=== PATIENT | female | born 1930 | race Caucasian/White ===

== ENCOUNTER 2017-01-24 09:40 | Inpatient (IN) | payer MEDICARE ==
--- NOTE | 2017-01-18 11:28 | HP ---
DATE OF ADMISSION: 01/24/2017. DATE OF OFFICE VISIT: 01/18/2017. SURGEON: Brittani Messer MD. PROCEDURE: Right total knee arthroplasty. HISTORY OF PRESENT ILLNESS: Ms. Miranda is an 86-year-old female with complaints of right knee pain. She has an existing right total knee and x-rays confirm loosening of the hardware. She has failed conservative management and has elected to proceed with a right total knee arthroplasty revision. PAST MEDICAL HISTORY: Hiatal hernia, GERD, high cholesterol, COPD. PAST SURGICAL HISTORY: Hysterectomy, bilateral TKA's, bilateral carpal tunnel release, cataract removal, appendectomy, and tonsillectomy. CURRENT MEDICATIONS: Percocet, Celebrex, Levocetirizine, Dihydrochloride, Omeprazole, Fenofibrate, Fluticasone, Gabapentin, Tylenol, and vitamin B12. ALLERGIES: PENICILLIN, BARBITURATES, CODEINE, IODINE, DOXYCYCLINE, DESLORATADINE. FAMILY HISTORY: Lung, colon and breast cancer, tuberculosis. SOCIAL HISTORY: She is an 86-year-old female, she lives with her . She does not smoke, use drugs or alcohol. REVIEW OF SYSTEMS: A complete 14 point review of systems is reviewed with the patient and positive for kidney stones. She denies a history of DVT, PE, bleeding disorder, or anesthesia problems. PHYSICAL EXAMINATION GENERAL: She is an 86-year-old, obese female in no acute distress. VITAL SIGNS: She stands 5 feet 7 inches tall, weighs 250 pounds. Her blood pressure is 110/58, her heart rate is 81. HEENT: She is normocephalic, atraumatic. NECK: Supple with no palpable lymph nodes. Trachea is midline. CARDIO: Regular rate and rhythm. Strong S1, S2. No murmurs, gallops or rubs. PULMONARY: The lungs are clear to auscultation bilaterally. No wheezes, rhonchi, or rales. ABDOMEN: Soft, nontender, nondistended. MUSCULOSKELETAL: Right lower extremity: The skin is intact. There is a mild effusion. She has intact sensation distally and light touch over both legs. She walks with a slightly antalgic type gait favoring her right leg. She has 2 + dorsalis pedis pulses. NEUROLOGIC: She is alert and oriented times there. Cranial nerves II through XII are intact. ASSESSMENT AND PLAN: Ms. Miranda is an 86-year-old female with periprosthetic loosening and periprosthetic tibial plateau fracture of the right knee. She has developed a severe valgus deformity and has severe pain of the right knee. She has elected to proceed with revision of her right total knee. The surgery is scheduled for 01/24/[address] Messer discussed the risks and benefits of the surgery today and all of her questions were answered. Coumadin , Percocet and Colace were sent to her pharmacy today for postoperative DVT prophylaxis and pain control. She will follow-up with Dr. Messer 10 to 14 days after the surgery. ABDULLAHI RAMIREZ [id number]/[facility] #: [id number] MTDD
[~2017-01-24 09:40] MED LIST: Buffered Lidocaine 1% SYR 3ML* 3 ML/SYR SYRINGE INTRADERM ONE; Dexamethasone IV* 4 MG/ML 1 ML (4 MG) IV SLOW PU ONE; DiMENhydriNATE IV* 50 MG/ML VIAL IV PUSH PRN; Famotidine IV* 10 MG/ML 2 ML (20 mg) IV ONE; HYDROmorphone INJ* 1 MG/ML CARPUJECT SYRINGE IV PRN; Ondansetron INJ* 2 MG/ML VIAL IV PRN; PROCHLORPERAZINE INJ 5 MG/ML 2 ML VIAL IV PRN; fentaNYL* 50 MCG/ML 2 ML VIAL (100 MCG VIAL) IV PRN
[2017-01-24] MEDS ORDERED: Midazolam* 1 MG/ML 2 ML VIAL (2 MG) ONE (10:20)
[2017-01-24] MEDS ORDERED: HYDROmorphone INJ* 1 MG/ML CARPUJECT SYRINGE ONE ×2 (10:20→14:15)
[2017-01-24] MEDS ORDERED: fentaNYL* 50 MCG/ML 2 ML VIAL (100 MCG VIAL) ONE ×3 (10:20→17:26)
[2017-01-24] MEDS ORDERED: Morphine PF AMP (0.5MG/ML)* 5 MG/10 ML AMP ONE (10:22)
[2017-01-24] MEDS ORDERED: Propofol* 10 MG/ML 20 ML BTL IV PUSH ONE ×2 (10:47→14:27)
[2017-01-24] MEDS ORDERED: Dexmedetomidine* 200 MCG/2 ML 2 ML VIAL ONE (10:47)
[2017-01-24] MEDS ORDERED: Famotidine IV* 10 MG/ML 2 ML (20 mg) ONE (11:31)
[2017-01-24] MEDS ORDERED: Dexamethasone IV* 4 MG/ML 1 ML (4 MG) ONE (11:31)
[2017-01-24] MEDS ORDERED: Clindamycin 900 MG IVPREMIX(* 900 MG/50 ML SDV IV ONE (11:31)
[2017-01-24] MEDS ORDERED: Acetaminophen TAB* 325 MG PO PRN (14:16)
[2017-01-24] MEDS ORDERED: Polyethylene Glycol 3350* 17 GM PACKET PO PRN (14:16)
[2017-01-24] MEDS ORDERED: Fluticasone NASAL SPRAY 50MCG* 16 gm SPRAY BTL BOTH NARES PRN (14:31)
[2017-01-24] MEDS ORDERED: diPHENhydraMINE IV* 50 MG/ML 1 ml VIAL (BENADRYL) IV PRN (16:43)
[2017-01-24] MEDS ORDERED: PROCHLORPERAZINE INJ 5 MG/ML 2 ML VIAL IV PRN (16:43)
[2017-01-24] MEDS ORDERED: Nalbuphine* 20 MG/ML 1 ML VIAL IV PRN (16:43)
[2017-01-24] MEDS ORDERED: Naloxone* 0.4 MG/ML 1 ML VIAL IV PRN (16:43)
[2017-01-24] MEDS ORDERED: oxyCODONE/Acetamin 5/325 MG* TAB PO PRN (16:43)
[2017-01-24] MEDS ORDERED: Ondansetron INJ* 2 MG/ML VIAL IV PRN (16:43)
[2017-01-24] MEDS ORDERED: DiMENhydriNATE IV* 50 MG/ML VIAL IV PUSH PRN (16:43)
--- NOTE | 2017-01-24 17:22 | RAD ---
CPT II Codes: 6045F INDICATION: Right knee replacement with revision. 29 seconds of fluoroscopy time was used. 7 spot images demonstrates revision of bipolar knee arthroplasty. IMPRESSION: Fluoroscopic services provided for referring physician for bipolar knee arthroplasty.
--- NOTE | 2017-01-24 19:04 | CONSULT ---
Consult Consult: HOSPITALIST CONSULT: Requesting Provider: Dr Messer Reason for Consultation: medical co-management. HPI: Ms. Miranda is an 86 yo F who has a h/o COPD, GERD, recurrent UTIs in the setting of numerous kidney stones and bilateral knee replacements for osteoarthritis who is admitted after an elective right revision total knee arthroplasty. The patient had been doing well until about 1 year ago when she fell. Since that time she had pain in her R knee. Conservative measures were attempted however failed. She under went the revision total knee arthroplast today, 01/24/17. She has been feeling well prior to surgery and has no complaints at this time. The hospitalist service was asked to consult for medical co-management. PMHx: COPD, GERD, hiatal hernia PSHx: B/L cataract extraction, B/L carpal tunnel release, WILLIE-BSO, B/L knee arthroplasties and R revision total knee arthroplasty, appendectomy, L ureteral stent placement and shock wave lithotripsy and tonsillectomy. All: codeine, PCN, aspirin, barbiturates, desloratadine, doxycycline, hyclate, iodinated contrast agents Meds: Current in hospital and home medication lists reviewed FamHx: + fam history of lung, colon and breast cancer. SocHx: The patient is a former smoker-quit 50 years ago. No EtOH. She lives with her . ROS: No recent fever, chill, anorexia. No CP or SOB. No abd pain, N/V/D. Her only complaint has been frequent urination with slight dysuria though she states she saw her urologist this past Saturday and was felt to be ready for surgery. She has had pain in the R knee. No neurologic complaints. PE: 105/51 63 16 97.5 93% on 2L Gen: elderly female sitting up in the stretcher in NAD HEENT: PERRL, EOMI, + evidence of prior cataract extraction Card: nl S1, S2 RRR Pulm: CTA anteriorly Abd: BS+ soft, NT, ND Musculoskeletal: R knee in surgical dressing with cryo unit in place Neuro: CN II-XII grossly intact, strength UE B/L 5/5, LE strength not tested Psych: alert, oriented x3, affect appears appropriate. A/P: Ms Miranda is an 86 yo F who has a h/o COPD and GERD is admitted after an elective R revision total knee arthroplasty. 1. R revision total knee arthroplasty: management per orthopedics including DVT prophylaxis. 2. Hypotension: the patient is mildly hypotensive in recovery. She is mentally intact with fair urine output. Continue IVF and monitor UOP and mental status. If her BP drops and she has decreased output will bolus fluids. 3. COPD: no signs of exacerbation at this time. She is on 2L supplemental O2 with a fair O2 saturation. Try to wean O2 likely tomorrow. 4. GERD: continue omeprazole BID. 5. DVT-P: lovenox 6. Full code 7. The hospitalist group will continue to follow.
[2017-01-24] MEDS: Gabapentin CAP(*) 300 MG PO SCH ×2 (20:31→21:07)
[2017-01-24] MEDS ORDERED: Warfarin TAB(*) 6 MG PO ONE (21:00)
[2017-01-24] MEDS: Clindamycin 600 MG IVPREMIX(* 600 MG/50 ML SDV IV SCH (21:06)
[2017-01-24] MEDS: Omeprazole CAP* 20 MG PO SCH (21:06)
[2017-01-24] MEDS: Magnesium Hydroxide LIQ* 30 ML UDC PO SCH (21:07)
[2017-01-24] MEDS: Docusate CAP* 100 MG PO SCH (21:07)
--- NOTE | 2017-01-25 00:56 | OP ---
DATE OF OPERATION: 01/24/17 - ROOM #338 DATE OF : 34 SURGEON: Brittani Messer MD CONTROL ELECTRICIAN: ABDULLAHI Randle ANESTHESIOLOGIST: Dr. Lynn. ANESTHESIA: Spinal. 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 OPERATIVE PROCEDURE: Revision right total knee arthroplasty. COMPLICATIONS: None. TOURNIQUET TIME: 77 minutes. ESTIMATED BLOOD LOSS: 400 cc. SPECIMENS: The patient's femoral and tibial hardware were sent, as well as any collected bone fragments. Multiple culture swabs were obtained at the beginning of the case and sent for aerobic and anaerobic cultures and sensitivities. HARDWARE USED: Hardware was 140Fire cemented revision hardware for the TC3 system. For the femur, a size 3 right femoral component was used with a 75 x 14 uncemented stem. Laterally an 8 mm distal augment and 8 mm posterior augment was used, medially a 4 mm distal augment was used. For the tibia, a size 4 tibial tray rotating platform MBT revision cemented tray was used with a 10 x 75 uncemented stem. Metaphyseal sleeve MBT revision size 37 was used. For the insert, a Sigma tibial insert rotating platform TC3 size 3,15 mm. Two packages of Simplex bone cement were used. BRIEF HISTORY/INDICATION: Ms. Miranda is an 86-year-old female with right total knee arthroplasty at an outside facility many years ago. Over 6 months ago, she had a fall and was seen in [place]. She was diagnosed with a lateral to proximal tibial plateau fracture which was a periprosthetic fracture around the tibial tray. She was treated nonoperatively by an outside physician and did poorly. She followed up with me, at which time I told her she needed revision total knee arthroplasty. She had obvious loosening, osteolysis, and periprosthetic fracture around the tibial tray. The patient was immediately scheduled for surgery, but did have multiple cancellations due to medical optimization. She was finally cleared for surgery and wished to proceed. The patient understood the risks of surgery included but were not limited to bleeding, infection, damage to nearby structures, continued pain, need for further surgery, intraoperative fracture, nerve palsy, hardware failure or loosening, knee stiffness, stroke, heart attack, blood clot, and . She wished to proceed. 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 She had a large amount of metallosis in the knee. The femoral component was removed quite easily and the lateral femoral condyle had a large amount of osteolysis and bone loss. After removal of the tibial tray, there was significant amount of bone loss around the lateral tibial plateau. Medial tibial plateau remained stable. Patellar component was stable and intact without significant wear. DESCRIPTION OF PROCEDURE: Ms. Miranda was identified in the preanesthesia unit. Her right lower extremity was marked as the correct operative site. Informed consent was signed and placed in the chart. The patient was taken to the operating room and placed under spinal anesthesia. Vergara catheter was placed. Tourniquet was placed on the right thigh. Right lower extremity was prepped and draped in the usual sterile fashion. The patient did have 12 degree valgus deformity at the knee. Her right lower extremity was prepped and draped in the usual sterile fashion. Preop timeout was made to correctly identify the patient's side and site. Appropriate perioperative antibiotics were given within 1 hour of incision. The patient's prior incision was used. This was opened with a 10 blade. A new 10 blade was used to make a standard medial parapatellar arthrotomy. The patella was subluxed laterally and there was a lot of scar tissue. Electrocautery was used to remove the scar tissue around the gutters. The capsule had some metallosis. Electrocautery was used to elevate soft tissue off the superomedial tibia to the mid sagittal plane. Multiple culture swabs were obtained and sent for cultures and sensitivities. There was no obvious purulence. The knee was carefully flexed up. The polyethylene was removed. The tibial tray had obvious subsidence laterally and there was visible motion along the lateral tibial plateau bone. Using a small oscillating saw, the cement hardware interface of the femoral component was carefully loosened. A bone tamp easily removed from the femoral component. There was no bone loss along the femoral component. It was immediately visible that the lateral femoral condyle had a large amount of osteolysis and bone loss. This was removed with a rongeur. There was a thin shelf of bone along the lateral femoral condyle, but this remained intact throughout the case. Attention was next turned to removing the tibial tray. Oscillating saw and flexible osteotomes were used to carefully remove the tibial tray. Lateral tibial plateau had essentially a nonunion proximally with poor bone stalk more distally. A drill was used to enter the intramedullary canal of the tibia. Tibia was sequentially broached up to a size 12 reamer. A clean-up cut was made along the proximal tibia. Metaphyseal sleeve broaches were then used up to a size 37. The 37 metaphyseal sleeve broach trial had excellent fit. A tray was placed over this to trial. The tibial tray was sized to a size 4 and had excellent stability. The tray did sit up with a 12 stem. Therefore, a 10 mm stem was chosen. The tray sat nicely on the medial tibial plateau bone and metaphyseal sleeve with the 10 mm distal stem. AP and lateral C-arm views confirmed satisfactory position of the component. There was no periprosthetic fracture distally on the tibia. The patient's prior tib-fib healed fracture was noted in x-rays. At this point, our attention was given to the femur. A drill was used to enter the distal femur. The intramedullary canal was broached up to a size 14 for the uncemented stem. Clean-up cuts were made along the distal and posterior femoral condyles. Anteriorly, there was no necessary clean-up cut. A 8-mm distal and posterior augments were chosen laterally, 4 mm distal augment was chosen medially. A trial size 3 femur was put together with these augments as well as a 75 x 14 uncemented stem trial. This femoral component had good fit. With a 12.5 mm insert trial, the knee was taken through a range of motion. The knee had good alignment, good medial lateral stability and a full extension to 125 degrees of flexion. There was good patellofemoral tracking. Scar tissue was removed around the patellar component. The patellar component was without significant wear and had no loosening. Decision was made to leave this component in place. All trials were carefully removed. The bony cut surfaces were copiously irrigated with sterile saline and dried. The final components were all opened and assembled. The final components were cemented into place starting with the tibia and followed by the femur. A 15 mm insert trial was chosen and placed while the knee was brought out into full extension. The tourniquet had been turned down at 60 minutes but was reinflated for cementing. Total tourniquet time was 77 minutes. Once the cement was fully cured, the insert trial was removed. Posterior capsule was checked for any bleeding. Any excess cement was carefully removed. A 15 mm tibial insert rotating platform TC3 insert size 3 was chosen for the final implant. This was placed on the tibial tray without difficulty. Final range of motion with full extension to 125 degrees of flexion. No medial or lateral ligamentous instability. Final C-arm views showed no periprosthetic fracture and satisfactory alignment. The knee was copiously irrigated with sterile saline. The extensor mechanism was closed over a medium Hemovac drain using interrupted #1 Vicryl. The rest of the incision was closed in a layered fashion using 0 and 2-0 Vicryl. Skin was closed using running 3-0 nylon suture. The patient's anesthesia was reversed without difficulty. She was taken to the PACU in stable condition. Intended weightbearing will be weightbearing as tolerated. Intended DVT prophylaxis will be Coumadin with a Lovenox bridge. [id number]/[facility] #: [id number] BART
[2017-01-25] MEDS: Clindamycin 600 MG IVPREMIX(* 600 MG/50 ML SDV IV SCH ×2 (04:56→13:48)
[2017-01-25] MEDS ORDERED: diPHENhydraMINE PO* 25 MG PO PRN (05:00)
[2017-01-25] MEDS ORDERED: oxyCODONE/Acetamin 5/325 MG* TAB PO PRN ×2 (05:00)
[2017-01-25] MEDS ORDERED: Ondansetron TAB* 4 MG PO PRN (05:00)
[2017-01-25] MEDS ORDERED: oxyCODONE TAB* 5 MG TAB PO PRN (05:00)
[2017-01-25] MEDS ORDERED: Ondansetron INJ* 2 MG/ML VIAL IV PRN (05:00)
[2017-01-25] MEDS ORDERED: diPHENhydraMINE IV* 50 MG/ML 1 ml VIAL (BENADRYL) IV PRN (05:00)
[2017-01-25] MEDS: Morphine INJ* 4 MG/ML 1 ML CARPUJECT IV PRN ×2 (05:15→11:26)
[2017-01-25 07:18] LABS: Hematocrit 31 % (35-47); Hemoglobin 10.1 g/dl (12.0-16.0)
[2017-01-25] MEDS: Cetirizine* 10 MG TAB PO SCH (07:33)
[2017-01-25] MEDS: Cyanocobalamin TAB* 500 MCG PO SCH (07:39)
[2017-01-25] MEDS: Omeprazole CAP* 20 MG PO SCH ×2 (07:39→20:13)
[2017-01-25] MEDS: Docusate CAP* 100 MG PO SCH ×2 (07:40→20:13)
[2017-01-25] MEDS: Magnesium Hydroxide LIQ* 30 ML UDC PO SCH ×2 (07:40→20:15)
[2017-01-25] MEDS: Gabapentin CAP(*) 300 MG PO SCH ×4 (07:40→20:12)
[2017-01-25] MEDS: FENOFIBRATE 160 MG PO SCH (07:43)
[2017-01-25 08:08] LABS: BUN/Creatinine Ratio 23.3 (8-20); Calcium 8.3 mg/dL (8.6-10.3); EGFR Non-African American 42.8 (>60); Potassium 4.5 mmol/L (3.5-5.0)
--- NOTE | 2017-01-25 09:07 | PN ---
Progress Note - Progress Note SOAP: Subjective: Pt. reports pain is controlled. Objective: RLE - drain removed with tip intact, 200 cc ss drainage. distally +df/pf, full sens lt, 2+ dp pulse. 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 wishes
[2017-01-25] MEDS ORDERED: HYDROcodone/ACETAMIN 5-325 MG* 1 TAB PO PRN ×2 (11:38)
--- NOTE | 2017-01-25 12:59 | RAD ---
HISTORY: Fall, status post right knee arthroplasty COMPARISONS: January 24, 2017 VIEWS: 3, Frontal and lateral views of the right knee FINDINGS: BONE DENSITY: There is diffuse osteopenia. BONES: The patient is status post right knee arthroplasty. There is an oblique nondisplaced, periprosthetic fracture along the femoral component. JOINTS: There is no arthropathy. ALIGNMENT: There is no dislocation. SOFT TISSUES: Unremarkable. OTHER FINDINGS: None. IMPRESSION: DISPLACED PERIPROSTHETIC FRACTURE OF THE FEMORAL COMPONENT OF THE RIGHT KNEE ARTHROPLASTY
--- NOTE | 2017-01-25 13:19 | PN ---
Progress Note - Progress Note Note: S: While being transferred from bed with one person assist using walker patient fell to floor due to "slippery floor" via patient, denies LOC, lightheadedness, syncope. Patient states event occurred quickly, unable to completely assess what happened. Fell to floor, + weight to R leg. Noted pain immediately following. X-ray performed, showed displaced periprosthetic fracture right femur. Patient being transported to CT currently. + emesis this AM, + nausea, no vomiting currently O: Alert, sitting comfortably in bed. Surgical dressing intact, no drainage seen. Knee immobilizer in place. sensation to light touch intact R LE. PT pulses 2+ R LE. + active dorsiflexion/ plantarflexion. A- Fall with subsequent femur fracture P- Dr Messer notified, will be in to see patient this afternoon. Knee immobilizer placed, discussed with nurse Josefa. Patient is non-weight bearing. CT pending.
--- NOTE | 2017-01-25 14:35 | RAD ---
INDICATION: Periprosthetic fracture distal femur COMPARISON: Right knee January 25, 2017; right lower extremity July 02, 2016; CT lower extremity July 04, 2016. TECHNIQUE: Axial scans were obtained from the hip to the ankle with coronal and sagittal reconstructions. FINDINGS: There is a spiral fracture of the distal right femoral diaphysis originating near the cephalad extent of the longstem femoral component of the knee prosthesis. The distal fragment including the femoral component is displaced posteriorly one bone width. There is very mild angular deformity. There is approximately 1.2 cm of overriding of the fracture fragments. There are no other acute fractures. There is cortical discontinuity/osteolysis about the lateral tibial metaphysis but this does not represent a new finding There is an old remodeling fracture of the distal tibial diaphysis. The long stemmed tibial component of the prosthesis appears well seated with no evidence of hardware failure. There are soft tissue changes to include subcutaneous air. This may be secondary to the fact that there has been recent prosthesis revision. IMPRESSION: 1. Acute periprosthetic fracture of the distal femoral diaphysis as described. 2. Persistent mild osteolysis about the lateral tibial metaphysis. This is been documented on earlier CT imaging. 3. Remote, healed fracture of the distal tibial diaphysis. 4. Subcutaneous emphysema likely postsurgical in nature, less likely related to an open fracture that is now reduced.
[2017-01-25] MEDS ORDERED: Enoxaparin(*) 30 MG/0.3 ML SYR SUBCUT SCH (15:00)
[2017-01-25] MEDS ORDERED: Warfarin TAB(*) 6 MG PO SCH (17:00)
--- NOTE | 2017-01-25 19:32 | PN ---
Subjective Date of Service: 01/25/17 Interval History: Pt is feeling ok. She is in disbelief that she fell and fractured her newly operated on leg. She denies any significant pain at this time. Objective Active Medications: Acetaminophen (Tylenol Tab*) 650 mg PO Q4H PRN PRN Reason: mild pain or temp Hydrocodone Bitart/Acetaminophen (S[place] 5-325 Tab*) 1 tab PO Q4H PRN PRN Reason: PAIN - MILD Last Admin: 01/25/17 13:47 Dose: 1 tab Hydrocodone Bitart/Acetaminophen (Silt 5-325 Tab*) 2 tab PO Q4H PRN PRN Reason: PAIN - MODERATE Cetirizine HCl (Zyrtec*) 10 mg PO DAILY [facility] Last Admin: 01/25/17 07:33 Dose: Not Given Cyanocobalamin (Vitamin B12 Tab*) 1,000 mcg PO DAILY [facility] Last Admin: 01/25/17 07:39 Dose: 1,000 mcg Diphenhydramine HCl (Benadryl Iv*) 12.5 mg IV Q6H PRN PRN Reason: PRURITIS Diphenhydramine HCl (Benadryl Po*) 25 mg PO Q6H PRN PRN Reason: itching Docusate Sodium (Colace Cap*) 100 mg PO BID [facility] Last Admin: 01/25/17 07:40 Dose: 100 mg Enoxaparin Sodium (Lovenox(*)) 30 mg SUBCUT Q24H [facility] Last Admin: 01/25/17 15:12 Dose: 30 mg Fenofibrate (Tricor(Nf)) 160 mg PO QAM [facility] PRN Reason: Protocol Last Admin: 01/25/17 07:43 Dose: 160 mg Fluticasone Propionate (Flonase Nasal [place] 50mcg*) 1 spray BOTH NARES DAILY PRN PRN Reason: CONGESTION Gabapentin (Neurontin Cap(*)) 600 mg PO QID [facility] Last Admin: 01/25/17 17:37 Dose: 600 mg Lactated Ringer's (Lactated Ringers 1000 Ml Bag*) 1,000 mls @ 100 mls/hr IV PER RATE [facility] Last Admin: 01/25/17 05:06 Dose: 100 mls/hr Lactulose (Lactulose*) 30 ml PO Q6H PRN PRN Reason: constipation Magnesium Hydroxide (Milk Of Magnderrick Liq*) 30 ml PO BID [facility] Last Admin: 01/25/17 07:40 Dose: 30 ml Morphine Sulfate (Morphine Inj (Syringe)*) 4 mg IV Q2H PRN PRN Reason: PAIN Last Admin: 01/25/17 11:26 Dose: 4 mg Omeprazole (Prilosec Cap*) 40 mg PO BID [facility] Last Admin: 01/25/17 07:39 Dose: 40 mg Ondansetron HCl (Zofran Inj*) 4 mg IV Q6H PRN PRN Reason: nausea Last Admin: 01/25/17 09:51 Dose: 4 mg Ondansetron HCl (Zofran Tab*) 4 mg PO Q6H PRN PRN Reason: NAUSEA Polyethylene Glycol/Electrolytes (Miralax*) 17 gm PO DAILY PRN PRN Reason: Constipation Vital Signs 01/24/17 01/24/17 01/24/17 19:45 20:21 21:01 Temperature 97.6 F 97.3 F Pulse Rate 62 71 Respiratory 16 16 16 Rate Blood Pressure 99/54 112/76 (mmHg) O2 Sat by Pulse 96 96 Oximetry 01/24/17 01/24/17 01/24/17 21:07 21:43 21:51 Temperature 97.3 F Pulse Rate 73 Respiratory 18 18 18 Rate Blood Pressure 95/48 (mmHg) O2 Sat by Pulse 97 Oximetry 01/24/17 01/24/17 01/24/17 23:07 23:31 23:41 Temperature 97.6 F Pulse Rate 57 Respiratory 16 18 Rate Blood Pressure 101/50 (mmHg) O2 Sat by Pulse 87 Oximetry 01/25/17 01/25/17 01/25/17 01:35 01:37 01:43 Temperature 97.6 F Pulse Rate 61 Respiratory 18 18 Rate Blood Pressure 91/42 (mmHg) O2 Sat by Pulse 95 95 Oximetry 01/25/17 01/25/17 01/25/17 02:43 04:52 04:55 Temperature 97.9 F Pulse Rate 65 Respiratory 18 18 18 Rate Blood Pressure 107/51 (mmHg) O2 Sat by Pulse 98 Oximetry 01/25/17 01/25/17 01/25/17 05:15 06:15 06:55 Temperature Pulse Rate Respiratory 20 18 16 Rate Blood Pressure (mmHg) O2 Sat by Pulse Oximetry 02/01/25/17 01/25/17 07:34 07:40 08:55 Temperature 98.4 F Pulse Rate 67 Respiratory 18 16 16 Rate Blood Pressure 93/40 (mmHg) O2 Sat by Pulse 99 Oximetry 01/25/17 01/25/17 01/25/17 09:40 10:55 11:06 Temperature 98.1 F Pulse Rate 71 Respiratory 16 18 28 Rate Blood Pressure 118/46 (mmHg) O2 Sat by Pulse 90 Oximetry 01/25/17 01/25/17 01/25/17 11:26 11:45 12:00 Temperature 98.1 F Pulse Rate 72 Respiratory 18 12 16 Rate Blood Pressure 93/52 (mmHg) O2 Sat by Pulse 100 Oximetry 01/25/17 01/25/17 01/25/17 12:03 12:26 13:46 Temperature 97.8 F Pulse Rate 64 Respiratory 17 16 16 Rate Blood Pressure 109/57 (mmHg) O2 Sat by Pulse 99 Oximetry 01/25/17 01/25/17 01/25/17 13:47 15:47 16:39 Temperature 97.6 F Pulse Rate 67 Respiratory 16 16 16 Rate Blood Pressure 108/51 (mmHg) O2 Sat by Pulse 98 Oximetry 01/25/17 17:37 Temperature Pulse Rate Respiratory 16 Rate Blood Pressure (mmHg) O2 Sat by Pulse Oximetry Oxygen Devices in Use Now: Nasal Cannula Appearance: Elderly female sitting up in bed, NAD Eyes: No Scleral Icterus Ears/Nose/Mouth/Throat: Mucous Membranes Moist Respiratory: Symmetrical Chest Expansion and Respiratory Effort, Clear to Auscultation Cardiovascular: NL Sounds; No Murmurs; No JVD, RRR, No Edema Abdominal: NL Sounds; No Tenderness; No Distention Extremities: No Clubbing, Cyanosis, - - R knee in knee immobilizer and cryo unit Skin: No Rash or Ulcers, No Nodules or Sclerosis Neurological: Alert and Oriented x 3 Result Diagrams: 01/25/17 06:44 01/25/17 06:44 Microbiology and Other Data: Microbiology 01/24/17 13:37 Anaerobic Culture - Preliminary Wound - Knee Right No Growth Day 1 Skin and Soft Tissue MRSA/MSSA (PCR - Final Mrsa Negative S.aureus Negative Gram Stain - Final Wound Culture - Preliminary No Growth Day 1 Acid Fast Bacilli Smear - Final Assess/Plan/Problems-Billing Ms Miranda is an 86 yo F who has a h/o COPD and GERD and is s/p elective R revision total knee replacement 01/24/17. - Patient Problems (1) Jamila-prosthetic fracture around prosthetic knee Current Visit: Yes Status: Acute Code(s): M97.8XXA - PERIPROSTH FRACTURE AROUND OTHER INTERNAL PROSTH JOINT, INIT; Z96.659 - PRESENCE OF UNSPECIFIED ARTIFICIAL KNEE JOINT SNOMED Code(s): 98249459 Comment: Plan is for transfer to [place] tomorrow. Continue pain control. Bed rest for now. Pt had fall earlier this AM. (2) Status post revision of total replacement of right knee Current Visit: Yes Status: Acute Code(s): Z96.651 - PRESENCE OF RIGHT ARTIFICIAL KNEE JOINT SNOMED Code(s): 275232598 Comment: POD#1 now with periprosthetic fracture. Continue pain control. (3) COPD (chronic obstructive pulmonary disease) Current Visit: Yes Status: Acute Code(s): J44.9 - CHRONIC OBSTRUCTIVE PULMONARY DISEASE, UNSPECIFIED SNOMED Code(s): 12881680 Comment: No signs of exacerbation. O2 sat dropped with IV morphine. (4) DVT prophylaxis Current Visit: Yes Status: Acute Code(s): LTT4909 - SNOMED Code(s): 631065010 Comment: lovenox (5) Full code status Current Visit: Yes Status: Acute Code(s): Z78.9 - OTHER SPECIFIED HEALTH STATUS SNOMED Code(s): 129495414
[2017-01-25] MEDS: Acetaminophen TAB* 325 MG PO SCH (20:13)
[2017-01-26] MEDS: Acetaminophen TAB* 325 MG PO SCH ×3 (02:56→13:28)
[2017-01-26] MEDS: oxyCODONE TAB* 5 MG TAB PO PRN ×2 (03:50→10:07)
[2017-01-26] MEDS: Docusate CAP* 100 MG PO SCH (08:30)
[2017-01-26] MEDS: Gabapentin CAP(*) 300 MG PO SCH ×2 (08:30→13:27)
[2017-01-26] MEDS: FENOFIBRATE 160 MG PO SCH (08:31)
[2017-01-26] MEDS: Magnesium Hydroxide LIQ* 30 ML UDC PO SCH (08:31)
[2017-01-26] MEDS: Omeprazole CAP* 20 MG PO SCH (08:31)
[2017-01-26] MEDS: Cyanocobalamin TAB* 500 MCG PO SCH (08:31)
[2017-01-26] MEDS: Cetirizine* 10 MG TAB PO SCH (08:32)
[2017-01-26 08:51] LABS: Hematocrit 27 % (35-47); Hemoglobin 8.6 g/dl (12.0-16.0)
--- NOTE | 2017-01-26 09:43 | PN ---
Progress Note - Progress Note SOAP: Subjective: POD #2 R total knee revision now with periprosthetic femur fracture. Pt c/o moderate pain, due for pain medication now. Denies CP/SOB or calf pain Objective: Vitals: Temp Pulse Resp BP Pulse Ox 98.1 F 78 16 109/46 98 01/26/17 08:02 01/26/17 08:02 01/26/17 08:30 01/26/17 08:02 01/26/17 08:02 Gen: A & Ox3, appears uncomfortable at rest sitting in bed RLE: Immobilizer in place. Thigh and calf soft/NT. +f/e at ankle, MTPs. N/V intact Labs: Laboratory Results - last 24 hr 25/17 01/26/17 08:45 08:45 Hgb 8.6 L Hct 27 L INR (Anticoag Therapy) 1.19 H Assessment: POD #2 R total knee revision with periprosthetic femur fx Plan: Pt to be transferred to [place] as soon as possible Cont NWB RLE Cont pain medication as needed
--- NOTE | 2017-01-26 12:50 | DS ---
TRANSFER SUMMARY: DATE OF ADMISSION: 01/24/17 DATE OF TRANSFER: 01/26/17 TRANSFERRING PROVIDER: Dr. Brittani Messer. ACCEPTING PROVIDER: Dr. Itzel Fisher. ACCEPTING FACILITY: [facility], Orthopedics. ADMITTING DIAGNOSIS: Failed right total knee arthroplasty. TRANSFER DIAGNOSIS: Status post right total knee arthroplasty revision with periprosthetic femur fracture. SECONDARY DIAGNOSES: 1. Hiatal hernia. 2. Gastroesophageal reflux disease. 3. High cholesterol. 4. Chronic obstructive pulmonary disease. HISTORY OF PRESENT ILLNESS: Ms. Miranda is an 86-year-old female who had complaints of ongoing right knee pain. She had an existing right total knee arthroplasty with confirmed loosening by x-ray. She had failed conservative management and elected to proceed with a right total knee arthroplasty revision. HOSPITAL COURSE: On 01/24/17, the patient was admitted to [facility] and underwent a successful right total knee arthroplasty revision by Dr. Messer. She recovered briefly in the post-anesthesia care unit where postoperative x-rays were obtained. There was no evidence of periprosthetic fracture and there was a well aligned long stem total knee arthroplasty cemented. The patient was then transferred to the short stay surgical unit in stable condition. Pain was well controlled with oral and IV pain medication. On postop day #1, the patient had attempted to ambulate midday with assistance and fell due to a slippery floor. She did not have any loss of consciousness, lightheadedness or syncope. She states that everything occurred very quickly and was unable to completely assess what had happened. She fell to the floor applying weight onto the right leg and noted significant pain in the thigh immediately following. X-rays were formed, which showed a displaced periprosthetic fracture of the right femur. She underwent CT scan, which did confirm this as well. Dr. Messer was notified immediately, a knee immobilizer was placed and the patient was then nonweight-bearing. On postop day #2, transfer was coordinated with the [facility] and the patient will be transferred in stable condition. Throughout the patient's hospital course, she has remained normotensive and afebrile. LABORATORY STUDIES: She had some acute blood loss anemia and on postop day #2 had an H and H of 8.6 and 27. She also had an INR of 1.19 on postop day #2; this was after 8 mg of Coumadin on postop day #0 and 6 mg postop day #1. DISCHARGE MEDICATIONS: 1. The patient has been receiving [place] 5/325 mg 1 to 2 tabs p.o. every 4 to 6 hours p.r.n. pain. 2. She has also had oxycodone 5 mg p.o. every 6 hours p.r.n. pain. 3. She has not required any IV pain medication since sustaining the fracture. 4. The patient has been getting milk of magnesia 30 mg p.o. b.i.d. as well as Colace 100 mg p.o. b.i.d. for constipation. 5. She has been also receiving 30 mg of Lovenox subcu every 24 hours for DVT prophylaxis. HOME MEDICATIONS: The patient's home medications include: 1. Celebrex 200 mg p.o. q.a.m., which has been held while in the hospital. 2. Prilosec 40 mg p.o. b.i.d. 3. Levocetirizine 5 mg p.o. daily. 4. Gabapentin 600 mg p.o. 4x a day. 5. Fluticasone nasal spray 50 micrograms one spray both nostrils daily as needed. 6. Triglide 160 mg p.o. daily. 7. Vitamin B12 1000 micrograms p.o. daily. TRANSFER CONDITION: Stable. ABDULLAHI MARTINEZ [id number]/[facility] #: [id number] BART
[2017-01-26 13:00] VITALS: BP 88/53
[2017-01-26] MEDS ORDERED: oxyCODONE TAB* 5 MG TAB ONE (13:22)
== END 2017-01-26 14:30 | disposition short-term general hospital (02) | DRG 467 ==
LOC: AA 09:40 → SSU 14:16
PROVIDERS: ADMIT Orthopaedic Surgery Adult Reconstructive Orthopaedic Surgery; ATTEND Orthopaedic Surgery Adult Reconstructive Orthopaedic Surgery
PROC: 0SPV0JZ Removal of Synthetic Substitute from Right Knee Joint, Tibial Surface, Open Approach (ICD-10-PCS; 2017-01-24)
PROC: 0SRT0J9 Replacement of Right Knee Joint, Femoral Surface with Synthetic Substitute, Cemented, Open Approach (ICD-10-PCS; 2017-01-24)
PROC: 0SRV0J9 Replacement of Right Knee Joint, Tibial Surface with Synthetic Substitute, Cemented, Open Approach (ICD-10-PCS; 2017-01-24)
PROC: 0SPT0JZ Removal of Synthetic Substitute from Right Knee Joint, Femoral Surface, Open Approach (ICD-10-PCS; principal; 2017-01-24 13:30)
DX: T84.032A Mechanical loosening of internal right knee prosthetic joint, initial encounter (principal); S82.141K Displaced bicondylar fracture of right tibia, subsequent encounter for closed fracture with nonunion; J44.9 Chronic obstructive pulmonary disease, unspecified; M97.11XA Periprosthetic fracture around internal prosthetic right knee joint, initial encounter; K21.9 Gastro-esophageal reflux disease without esophagitis; K44.9 Diaphragmatic hernia without obstruction or gangrene; M89.551 Osteolysis, right thigh; W01.0XXA Fall on same level from slipping, tripping and stumbling without subsequent striking against object, initial encounter; Y92.232 Corridor of hospital as the place of occurrence of the external cause; E78.00 Pure hypercholesterolemia, unspecified; Z88.0 Allergy status to penicillin; Z88.8 Allergy status to other drugs, medicaments and biological substances; Z88.6 Allergy status to analgesic agent; Z91.041 Radiographic dye allergy status; Z80.1 Family history of malignant neoplasm of trachea, bronchus and lung; Z80.3 Family history of malignant neoplasm of breast; Z80.0 Family history of malignant neoplasm of digestive organs; Z87.891 Personal history of nicotine dependence; Z96.653 Presence of artificial knee joint, bilateral; Z79.1 Long term (current) use of non-steroidal anti-inflammatories (NSAID); Z79.899 Other long term (current) drug therapy; Z87.440 Personal history of urinary (tract) infections
CPT/HCPCS: 36415; 76001; 80048; 85014; 85018; 85610; 87070; 87073; 87116; 87205; 87206; 87640; 87641; 88304; 94760; A9270-GY; C1776; J1100; J1170; J1200; J1650; J2250; J2270; J2405; J2704; J3010

== ENCOUNTER 2017-03-18 14:06 | Inpatient (IN) | payer MEDICARE ==
[2017-03-18] MEDS: NS 0.9% 1000 ML* 1,000 ML IV SCH (21:23)
[2017-03-18] MEDS: Acetaminophen TAB* 325 MG PO PRN (21:23)
[2017-03-18] MEDS: Ondansetron INJ* 2 MG/ML VIAL IV PRN (21:23)
[2017-03-18] MEDS ORDERED: oxyCODONE/Acetamin 5/325 MG* TAB PO PRN (22:34)
[2017-03-18] MEDS ORDERED: Ondansetron INJ* 2 MG/ML VIAL IV PRN (22:34)
[2017-03-18 23:34] LABS: Hematocrit 34 % (35-47); Hemoglobin 10.2 g/dl (12.0-16.0); Mean Corpuscular HGB Conc 30 g/dl (31-36); Mean Corpuscular Hemoglobin 25 pg (27-31); Mean Corpuscular Volume 82 fL (80-97); Mean Platelet Volume 7 um3 (7.4-10.4); Red Cell Distribution Width 17 % (10.5-15); White Blood Count 6.4 10^3/ul (3.5-10.8)
[2017-03-18 23:53] LABS: Albumin 2.9 g/dL (3.2-5.2); BUN/Creatinine Ratio 12.8 (8-20); EGFR Non-African American 56.7 (>60); Globulin 3.4 g/dL (2-4); Potassium 3.9 mmol/L (3.5-5.0); Total Bilirubin 0.2 mg/dL (0.2-1.0); Total Protein 6.3 g/dL (6.4-8.9)
[2017-03-19] MEDS: cefTRIAXone VIAL(*) 1,000 MG in NS 0.9% 50 ML* 50 ML IVPB SCH ×2 (00:06→23:28)
[2017-03-19 04:14] LABS: Urine Bacteria Absent (Absent); Urine Bilirubin Negative (Negative); Urine Glucose Negative (Negative); Urine Nitrite Negative (Negative)
--- NOTE | 2017-03-19 05:08 | HP ---
HISTORY AND PHYSICAL: DATE OF ADMISSION: 03/18/17 PRIMARY CARE PHYSICIAN: Johnny To DO CHIEF COMPLAINT: Left flank pain. HISTORY OF PRESENT ILLNESS: Please note this is a transfer from [facility] where the patient was admitted on March 15 with a diagnosis of sepsis from a UTI. According to the patient, the patient was here at [facility] back in January where she had had a total knee arthroplasty. Apparently after that, she had fallen and fractured her leg and ended up at [place]. This was repaired. She subsequently went to rehab and then home. However, at home, she developed chills with burning and increased frequency of urination and went to the hospital in [place] where she was admitted with a urinary tract infection. She initially received ciprofloxacin there, but this was transitioned to Rocephin despite her anaphylaxis to penicillin and she apparently tolerated it. The patient did see saw some improvement. She did have some 2 days of vomiting but this subsided, although she did have some nausea earlier today. Her fever also subsided, but she still maintained diffuse aches and pains. She also developed increasing left flank pain. Blood cultures were negative, but urine culture was positive for E. coli, which was sensitive to Rocephin, which she was on. Furthermore, her white count which was over 12 decreased to 5.9 by the date of discharge. However, because of this left- sided flank pain, the patient did have a CAT scan done. The CAT scan at this point showed bilateral hydronephrosis. Because of this, a call was placed to [facility] because Urology was unavailable at [place] and was needed to admitted to the hospitalist service with possible consult by Urology. PAST MEDICAL HISTORY: The patient has a past medical history noted for the UTI as noted above. Acute kidney injury, which she was also admitted for but her creatinine came down from 1.5 to 1.1 by the date of discharge. GERD, polymyalgia rheumatica, degenerative joint disease, COPD, morbid obesity, colonic polyps. PAST SURGICAL HISTORY: Significant for the knee arthroscopy as noted above. Femur fracture repair at [place], bilateral knee replacement, hysterectomy, cataract surgery, tonsillectomy and adenoidectomy, varicose vein ligation, removal of both colonic and duodenal polyps. ALLERGIES: She has an allergy/adverse reaction to PENICILLIN, which was supposedly anaphylactic but she tolerated Rocephin at [place]. CODEINE, ASPIRIN, BARBITURATES, DESLORATADINE, DOXYCYCLINE, IV CONTRAST DYE, and HYCLATE. CURRENT MEDICATIONS: At home are: 1. Tylenol 500 mg every 8 hours as needed. 2. Vitamin B12 1000 mcg daily. 3. Fenofibrate 160 mg in the morning. 4. Gabapentin 60 mg 3 times a day. 5. Celebrex 200 mg in the morning. 6. Omeprazole 40 mg twice daily. FAMILY HISTORY: Sister with breast cancer. Apparent history of lung cancer in the family. Mother of old age. SOCIAL HISTORY: The patient is . Her , [place], is her healthcare proxy. She quit tobacco many years ago. No alcohol or recreational drug use. REVIEW OF SYSTEMS: A 14-point review of systems was completed with the patient. All pertinent positives and negatives are in the history of present illness, otherwise it is negative. PHYSICAL EXAMINATION GENERAL: A very pleasant woman, lying in bed, in no acute distress. VITAL SIGNS: Temperature 98.7 degrees, heart rate 84 beats per minute, respiratory rate 20 breaths per minute, pulse ox 94% on 2 L, blood pressure 145/ 65. HEENT: Normocephalic, atraumatic. Pupils equal, round, and reactive to light. Moist mucous membranes. NECK: Supple. No JVD, bruits, palpable thyroid, or lymphadenopathy. CHEST: Clear to auscultation and percussion bilaterally. CARDIOVASCULAR: S1, S2 appreciated. Regular rate and rhythm. ABDOMEN: Positive bowel sound. Soft, tender in the left flank area with no rebound. No guarding. No rigidity. EXTREMITIES: No cyanosis or clubbing, plus bilateral edema. NEURO: Alert and oriented x3. Moves all extremities. SKIN: No rashes. No abnormalities. LABORATORY DATA/DIAGNOSTIC STUDIES: White count 6.4, hemoglobin 10.2, hematocrit 34, platelets 181. Other labs are pending. CAT scan was uploaded which showed bilateral hydronephrosis. ASSESSMENT AND PLAN: 1. Sepsis secondary to urinary tract infection. The patient seemed to be improving from this episode. It is strange that she has this bilateral hydronephrosis. seeing our radiologist review the CAT for their interpretation. We may need Urology's input on this. She currently did have a Vergara placed, which is certainly helping her void. Her pain seems to be a bit better. We will continue Rocephin and give her Percocet p.r.n. if it is necessary. We will repeat the imaging in 2 days and consider consulting Urology if no improvement. 2. Gastroesophageal reflux disease, stable. Continue Protonix. 3. Hypertriglyceridemia, stable. Continue fenofibrate. 4. FEN. Regular diet. 5. DVT prophylaxis. Heparin subcu. 6. The patient is a full code. TIME SPENT: Over 75 minutes were spent on this H and P, more than 40 minutes of which were spent in direct [id number] contact with the patient in evaluation, physical exam, counseling and coordination of care. CC: Chris Marroquin MD, Urology; Johnny To, * [id number]/[facility] #: [id number] MTDD
[2017-03-19] MEDS: Acetaminophen TAB* 325 MG PO PRN ×2 (05:09→23:26)
[2017-03-19] MEDS: Heparin VIAL(*) 5000 UNITS/ML VIAL (FIVE THOUSAND) SUBCUT SCH ×3 (05:16→21:34)
[2017-03-19] MEDS: NS 0.9% 1000 ML* 1,000 ML IV SCH (05:34)
[2017-03-19] MEDS ORDERED: NS 0.9% 1000 ML* 1,000 ML IV SCH (09:14)
[2017-03-19] MEDS: Cyanocobalamin TAB* 500 MCG PO SCH (11:34)
[2017-03-19] MEDS: Omeprazole CAP* 20 MG PO SCH (11:34)
[2017-03-19] MEDS: celeCOXIB CAP* 200 MG PO SCH (11:35)
[2017-03-19] MEDS: FENOFIBRATE 160 MG PO SCH (11:36)
[2017-03-19] MEDS: Cholecalciferol TAB* 1000 UNITS PO SCH (12:12)
[2017-03-19] MEDS: Gabapentin CAP(*) 300 MG PO SCH ×3 (12:12→21:33)
[2017-03-19] MEDS: Calcium Carbonate TAB* 1250 MG (CALCIUM 500 MG) PO SCH ×2 (12:13→21:34)
[2017-03-19] MEDS: Polyethylene Glycol 3350* 17 GM PACKET PO SCH (14:20)
[2017-03-19] MEDS: Docusate CAP* 100 MG PO SCH (14:20)
[2017-03-19] MEDS: Fluticasone NASAL SPRAY 50MCG* 16 gm SPRAY BTL NASAL SCH (14:20)
--- NOTE | 2017-03-19 14:43 | PN ---
Subjective Date of Service: 03/19/17 Interval History: HOSPITALIST PROGRESS NOTE Patient seen and examined at bedside. She c/o left flank/back pain, 6/10 intensity. Hypogastric pain and dysuria are resolved. Denies N/V, but appetite is poor. Family History: Unchanged from Admission Social History: Unchanged from Admission Past Medical History: Unchanged from Admission Objective Active Medications: Acetaminophen (Tylenol Tab*) 650 mg PO Q4H PRN PRN Reason: FEVER/PAIN Last Admin: 03/19/17 05:09 Dose: 650 mg Calcium Carbonate (Calcium Carbonate Tab*) 1,250 mg PO BID [facility] Last Admin: 03/19/17 12:13 Dose: 1,250 mg Celecoxib (Celebrex Cap*) 200 mg PO DAILY [facility] Last Admin: 03/19/17 11:35 Dose: 200 mg Cholecalciferol (Vitamin D Tab*) 2,000 units PO DAILY [facility] Last Admin: 03/19/17 12:12 Dose: 2,000 units Cyanocobalamin (Vitamin B12 Tab*) 1,000 mcg PO DAILY [facility] Last Admin: 03/19/17 11:34 Dose: 1,000 mcg Docusate Sodium (Colace Cap*) 100 mg PO DAILY [facility] Last Admin: 03/19/17 14:20 Dose: Not Given Fenofibrate (Tricor(Nf)) 160 mg PO QAM [facility] PRN Reason: Protocol Last Admin: 03/19/17 11:36 Dose: 160 mg Fluticasone Propionate (Flonase Nasal [place] 50mcg*) 1 spray NASAL DAILY [facility] Last Admin: 03/19/17 14:20 Dose: Not Given Gabapentin (Neurontin Cap(*)) 600 mg PO TID [facility] Last Admin: 03/19/17 14:21 Dose: Not Given Heparin Sodium (Porcine) (Heparin Vial(*)) 5,000 units SUBCUT Q8HR [facility] Last Admin: 03/19/17 05:16 Dose: 5,000 units Ceftriaxone Sodium 1,000 mg/ (Sodium Chloride) 50 mls @ 200 mls/hr IVPB Q24H [facility] Last Admin: 03/19/17 00:06 Dose: 200 mls/hr Sodium Chloride (Ns 0.9% 1000 Ml*) 1,000 mls @ 100 mls/hr IV PER RATE [facility] Omeprazole (Prilosec Cap*) 20 mg PO 0730 [facility] Last Admin: 03/19/17 11:34 Dose: 20 mg Ondansetron HCl (Zofran Inj*) 4 mg IV Q4H PRN PRN Reason: NAUSEA Last Admin: 03/18/17 21:23 Dose: 4 mg Oxycodone/Acetaminophen (Percocet 5/325 Tab*) 1 tab PO Q4H PRN PRN Reason: PAIN Polyethylene Glycol/Electrolytes (Miralax*) 17 gm PO DAILY [facility] Last Admin: 03/19/17 14:20 Dose: Not Given Senna (Senokot Tab*) 2 tab PO DAILY [facility] Vital Signs 03/18/17 03/18/17 03/19/17 20:16 23:33 04:21 Temperature 98.7 F 97.7 F 98.1 F Pulse Rate 84 92 88 Respiratory 20 16 16 Rate Blood Pressure 145/65 121/53 127/64 (mmHg) O2 Sat by Pulse 94 91 92 Oximetry Oxygen Devices in Use Now: None Appearance: Pleasant elderly lady lying in bed in [employer]. Eyes: No Scleral Icterus Ears/Nose/Mouth/Throat: Mucous Membranes Moist Neck: Trachea Midline Respiratory: Symmetrical Chest Expansion and Respiratory Effort, Clear to Auscultation Cardiovascular: RRR - Normal S1 and S2 Abdominal: NL Sounds; No Tenderness; No Distention, - - Left CVA tenderness Extremities: No Edema, - - left knee surgical scar has some scabs but no erythema or drainage Neurological: Alert and Oriented x 3, NL Muscle Strength and Tone Lines/Tubes/Other Access: Clean, Dry and Intact Peripheral IV Nutrition: Taking PO's Result Diagrams: 03/18/17 23:22 03/18/17 23:22 Assess/Plan/Problems-Billing Assessment: Mrs. Miranda is an 86yo F with PMH of obesity, GERD, PMR, DJD, COPD, s/p recent periprosthetic femur fracture repair, transferred from [place] with E. coli pyelonephritis and bilateral hydronephrosis. - Patient Problems (1) E. coli pyelonephritis Comment: - Records from [place] reviewed and CT loaded to our system. - Ucx grew E. coli sensitive to Ceftriaxone - will continue. - CT reviewed with Radiology - bilateral mild to moderate hydronephrosis, but no obstructing stone. - D/w Urology (Dr. Jose) - recommended removing Vergara and checking renal/ bladder US tomorrow (look for ureteral jets). (2) Severe sepsis Comment: - Present on admission to [place] with SKY. - Now resolved. (3) Jamila-prosthetic fracture around prosthetic knee Comment: - Toe touch WB on the left. - PT as tolerated. (4) DVT prophylaxis Comment: - SQ heparin. (5) Full code status
[2017-03-19] MEDS: Ondansetron INJ* 2 MG/ML VIAL IV PRN (19:15)
[2017-03-20] MEDS: CMCS Melatonin (NF) 3 MG TAB PO SCH ×2 (00:03→22:11)
[2017-03-20] MEDS: Heparin VIAL(*) 5000 UNITS/ML VIAL (FIVE THOUSAND) SUBCUT SCH ×3 (05:24→22:12)
[2017-03-20] MEDS: Fluticasone NASAL SPRAY 50MCG* 16 gm SPRAY BTL NASAL SCH (08:54)
[2017-03-20] MEDS: Calcium Carbonate TAB* 1250 MG (CALCIUM 500 MG) PO SCH ×2 (08:58→20:24)
[2017-03-20] MEDS: FENOFIBRATE 160 MG PO SCH (08:58)
[2017-03-20] MEDS: Cyanocobalamin TAB* 500 MCG PO SCH (08:59)
[2017-03-20] MEDS ORDERED: Senna TAB PO SCH (09:00)
[2017-03-20] MEDS: Gabapentin CAP(*) 300 MG PO SCH ×3 (09:00→20:24)
[2017-03-20] MEDS: celeCOXIB CAP* 200 MG PO SCH (09:02)
[2017-03-20] MEDS: Cholecalciferol TAB* 1000 UNITS PO SCH (09:02)
[2017-03-20] MEDS: Omeprazole CAP* 20 MG PO SCH (09:02)
[2017-03-20] MEDS: Docusate CAP* 100 MG PO SCH (09:04)
[2017-03-20] MEDS: Polyethylene Glycol 3350* 17 GM PACKET PO SCH (09:05)
--- NOTE | 2017-03-20 09:26 | RAD ---
HISTORY: Follow-up hydronephrosis COMPARISONS: March 16, 2017 TECHNIQUE: Multiple transverse and longitudinal ultrasound images were obtained of the kidneys and bladder using grayscale and color Doppler imaging. FINDINGS: RIGHT KIDNEY: The right kidney is normal in shape, size, contour, and echogenicity. There is no hydronephrosis or nephrolithiasis. The right kidney measures 11.8 x 5.2 x 4.7 cm. LEFT KIDNEY: There are simple and minimally comminuted cysts of the left kidney including a septated cyst of the upper pole measuring 4.4 cm in size. There is moderate pelvocaliectasis on the left, progressed from the previous examination. There is no appreciable nephrolithiasis. The left kidney measures 11.5 x 4.1 x 5.3 cm. BLADDER: The bladder is smooth in contour. Bilateral ureteral jets are identified. The prevoid bladder volume is 152 milliliters.. The postvoid bladder volume is 0 milliliters. AORTA AND IVC: No images are submitted of the vasculature. RETROPERITONEUM: Unremarkable. OTHER: None. IMPRESSION: 1. PERSISTENT AND SOMEWHAT PROGRESSED LEFT SIDE HYDRONEPHROSIS. 2. NO POSTVOID RESIDUAL
--- NOTE | 2017-03-20 14:28 | PN ---
Subjective Date of Service: 03/20/17 Interval History: HOSPITALIST PROGRESS NOTE Patient seen and examined at bedside. She feels better today. Still has left flank pain, but less intense, and overall feels improved. Denies dysuria and hypogastric pain. Family History: Unchanged from Admission Social History: Unchanged from Admission Past Medical History: Unchanged from Admission Objective Active Medications: Acetaminophen (Tylenol Tab*) 650 mg PO Q4H PRN PRN Reason: FEVER/PAIN Last Admin: 03/19/17 23:26 Dose: 650 mg Calcium Carbonate (Calcium Carbonate Tab*) 1,250 mg PO BID [facility] Last Admin: 03/20/17 08:58 Dose: 1,250 mg Celecoxib (Celebrex Cap*) 200 mg PO DAILY [facility] Last Admin: 03/20/17 09:02 Dose: 200 mg Cholecalciferol (Vitamin D Tab*) 2,000 units PO DAILY [facility] Last Admin: 03/20/17 09:02 Dose: 2,000 units Cyanocobalamin (Vitamin B12 Tab*) 1,000 mcg PO DAILY [facility] Last Admin: 03/20/17 08:59 Dose: 1,000 mcg Docusate Sodium (Colace Cap*) 100 mg PO DAILY [facility] Last Admin: 03/20/17 09:04 Dose: Not Given Fenofibrate (Tricor(Nf)) 160 mg PO QAM [facility] PRN Reason: Protocol Last Admin: 03/20/17 08:58 Dose: 160 mg Fluticasone Propionate (Flonase Nasal [place] 50mcg*) 1 spray NASAL DAILY [facility] Last Admin: 03/20/17 08:54 Dose: Not Given Gabapentin (Neurontin Cap(*)) 600 mg PO TID [facility] Last Admin: 03/20/17 09:00 Dose: 600 mg Heparin Sodium (Porcine) (Heparin Vial(*)) 5,000 units SUBCUT Q8HR [facility] Last Admin: 03/20/17 05:24 Dose: 5,000 units Ceftriaxone Sodium 1,000 mg/ (Sodium Chloride) 50 mls @ 200 mls/hr IVPB Q24H [facility] Last Admin: 03/19/17 23:28 Dose: 200 mls/hr Melatonin (Melatonin (Nf)) 3 mg PO BEDTIME [facility] Last Admin: 03/20/17 00:03 Dose: 1 tab Omeprazole (Prilosec Cap*) 20 mg PO 0730 [facility] Last Admin: 03/20/17 09:02 Dose: 20 mg Ondansetron HCl (Zofran Inj*) 4 mg IV Q4H PRN PRN Reason: NAUSEA Last Admin: 03/19/17 19:15 Dose: 4 mg Oxycodone/Acetaminophen (Percocet 5/325 Tab*) 1 tab PO Q4H PRN PRN Reason: PAIN Polyethylene Glycol/Electrolytes (Miralax*) 17 gm PO DAILY [facility] Last Admin: 03/20/17 09:05 Dose: Not Given Senna (Senokot Tab*) 2 tab PO DAILY [facility] Last Admin: 03/20/17 09:05 Dose: Not Given Vital Signs 03/20/17 03/20/17 03/20/17 09:00 11:00 11:24 Temperature 97.3 F Pulse Rate 84 Respiratory 16 17 16 Rate Blood Pressure 146/76 (mmHg) O2 Sat by Pulse 94 Oximetry Oxygen Devices in Use Now: None Appearance: Pleasant elderly lady sitting up in bed in [facility]. Eyes: No Scleral Icterus Ears/Nose/Mouth/Throat: Mucous Membranes Moist Neck: Trachea Midline Respiratory: Symmetrical Chest Expansion and Respiratory Effort, Clear to Auscultation Cardiovascular: RRR - Normal S1 and S2, +SM Abdominal: NL Sounds; No Tenderness; No Distention, - - + Left CVAT Neurological: Alert and Oriented x 3, NL Muscle Strength and Tone Lines/Tubes/Other Access: Clean, Dry and Intact Peripheral IV Nutrition: Taking PO's Result Diagrams: 03/18/17 23:22 03/18/17 23:22 Assess/Plan/Problems-Billing Assessment: Mrs. Miranda is an 86yo F with PMH of obesity, GERD, PMR, DJD, COPD, s/p recent periprosthetic femur fracture repair, transferred from [place] with E. coli pyelonephritis and bilateral hydronephrosis. - Patient Problems (1) E. coli pyelonephritis Comment: - Records from [place] reviewed and CT loaded to our system. - Ucx grew E. coli sensitive to Ceftriaxone - will continue. - CT reviewed with Radiology - bilateral mild to moderate hydronephrosis, but no obstructing stone. - D/w Urology (Dr. Garcia) - renal US shows bilateral ureteral jets and ) post void residual, but left hydro still present. Clinically she seems to be doing better, so plan to repeat US tomorrow - if improved, will likely d/c home, if hydro worsening, will plan for OR. (2) Severe sepsis Comment: - Present on admission to [place] with SKY. - Now resolved. (3) Jamila-prosthetic fracture around prosthetic knee Comment: - Toe touch WB on the left. - PT as tolerated. (4) DVT prophylaxis Comment: - SQ heparin. (5) Full code status Status and Disposition: Inpatient.
[2017-03-20] MEDS: Acetaminophen TAB* 325 MG PO PRN (14:41)
[2017-03-20] MEDS ORDERED: Ondansetron TAB* 4 MG PO PRN (14:47)
[2017-03-20] MEDS: cefTRIAXone VIAL(*) 1,000 MG in NS 0.9% 50 ML* 50 ML IVPB SCH (23:31)
[2017-03-21] MEDS: Heparin VIAL(*) 5000 UNITS/ML VIAL (FIVE THOUSAND) SUBCUT SCH ×2 (05:32→13:02)
[2017-03-21] MEDS: Fluticasone NASAL SPRAY 50MCG* 16 gm SPRAY BTL NASAL SCH (07:33)
[2017-03-21 08:00] LABS: BUN/Creatinine Ratio 14.9 (8-20); C Reactive Protein 34.84 mg/L (< 5.00); Calcium 9.1 mg/dL (8.6-10.3); EGFR Non-African American 56.7 (>60); Potassium 3.7 mmol/L (3.5-5.0)
[2017-03-21 08:08] LABS: Hematocrit 34 % (35-47); Hemoglobin 10.8 g/dl (12.0-16.0); Mean Corpuscular HGB Conc 31 g/dl (31-36); Mean Corpuscular Hemoglobin 25 pg (27-31); Mean Corpuscular Volume 81 fL (80-97); Mean Platelet Volume 7 um3 (7.4-10.4); Red Blood Count 4.27 10^6/ul (4.0-5.4); Red Cell Distribution Width 17 % (10.5-15); White Blood Count 4.9 10^3/ul (3.5-10.8)
[2017-03-21] MEDS: Gabapentin CAP(*) 300 MG PO SCH ×3 (08:09→21:24)
[2017-03-21] MEDS: Calcium Carbonate TAB* 1250 MG (CALCIUM 500 MG) PO SCH ×2 (08:09→21:24)
[2017-03-21] MEDS: celeCOXIB CAP* 200 MG PO SCH (08:11)
[2017-03-21] MEDS: Cyanocobalamin TAB* 500 MCG PO SCH (08:11)
[2017-03-21] MEDS: Omeprazole CAP* 20 MG PO SCH (08:12)
[2017-03-21] MEDS: Cholecalciferol TAB* 1000 UNITS PO SCH (08:12)
[2017-03-21] MEDS: FENOFIBRATE 160 MG PO SCH (08:13)
--- NOTE | 2017-03-21 11:20 | RAD ---
HISTORY: Follow-up hydronephrosis COMPARISONS: March 20, 2017 TECHNIQUE: Multiple transverse and longitudinal ultrasound images were obtained of the kidneys and bladder using grayscale and color Doppler imaging. FINDINGS: RIGHT KIDNEY: The right kidney is normal in shape, size, contour, and echogenicity. There is no hydronephrosis or nephrolithiasis. The right kidney measures 11.7 x 4.9 x 4.3 cm. LEFT KIDNEY: Again noted are left renal cysts. There is persistent right-sided hydronephrosis. The left kidney measures 11.3 x 4.4 x 5.1 cm. BLADDER: The bladder is smooth in contour. Bilateral ureteral jets are identified. The prevoid bladder volume is 172 milliliters.. The postvoid bladder volume is 30 milliliters. AORTA AND IVC: No images are submitted of the vasculature. RETROPERITONEUM: Unremarkable. OTHER: None. IMPRESSION: STABLE LEFT HYDRONEPHROSIS. BILATERAL URETERAL JETS. 30 ML POSTVOID RESIDUAL
--- NOTE | 2017-03-21 15:05 | PN ---
Subjective Date of Service: 03/21/17 Interval History: HOSPITALIST PROGRESS NOTE Patient seen and examined at bedside. Her left flank pain and dysuria are much improved. C/o diarrhea today, liquid, > 10 episodes so far. Family History: Unchanged from Admission Social History: Unchanged from Admission Past Medical History: Unchanged from Admission Objective Active Medications: Acetaminophen (Tylenol Tab*) 650 mg PO Q4H PRN PRN Reason: FEVER/PAIN Last Admin: 03/20/17 14:41 Dose: 650 mg Calcium Carbonate (Calcium Carbonate Tab*) 1,250 mg PO BID [facility] Last Admin: 03/21/17 08:09 Dose: 1,250 mg Celecoxib (Celebrex Cap*) 200 mg PO DAILY [facility] Last Admin: 03/21/17 08:11 Dose: 200 mg Cholecalciferol (Vitamin D Tab*) 2,000 units PO DAILY [facility] Last Admin: 03/21/17 08:12 Dose: 2,000 units Cyanocobalamin (Vitamin B12 Tab*) 1,000 mcg PO DAILY [facility] Last Admin: 03/21/17 08:11 Dose: 1,000 mcg Fenofibrate (Tricor(Nf)) 160 mg PO QAM [facility] PRN Reason: Protocol Last Admin: 03/21/17 08:13 Dose: 160 mg Fluticasone Propionate (Flonase Nasal [place] 50mcg*) 1 spray NASAL DAILY [facility] Last Admin: 03/21/17 07:33 Dose: Not Given Gabapentin (Neurontin Cap(*)) 600 mg PO TID [facility] Last Admin: 03/21/17 14:21 Dose: 600 mg Heparin Sodium (Porcine) (Heparin Vial(*)) 5,000 units SUBCUT Q8HR [facility] Last Admin: 03/21/17 13:02 Dose: Not Given Ceftriaxone Sodium 1,000 mg/ (Sodium Chloride) 50 mls @ 200 mls/hr IVPB Q24H [facility] Last Admin: 03/20/17 23:31 Dose: 200 mls/hr Melatonin (Melatonin (Nf)) 3 mg PO BEDTIME [facility] Last Admin: 03/20/17 22:11 Dose: 3 mg Omeprazole (Prilosec Cap*) 20 mg PO 0730 [facility] Last Admin: 03/21/17 08:12 Dose: 20 mg Ondansetron HCl (Zofran Tab*) 4 mg PO Q6H PRN PRN Reason: NAUSEA/VOMITING Oxycodone/Acetaminophen (Percocet 5/325 Tab*) 1 tab PO Q4H PRN PRN Reason: PAIN Vital Signs 03/20/17 03/21/17 03/21/17 23:30 07:35 08:00 Temperature 97.8 F 97.7 F Pulse Rate 86 82 Respiratory 16 16 Rate Blood Pressure 157/86 134/76 (mmHg) O2 Sat by Pulse 88 93 Oximetry Oxygen Devices in Use Now: None Appearance: Elderly lady lying in bed in NAD. Eyes: No Scleral Icterus Ears/Nose/Mouth/Throat: Mucous Membranes Moist Neck: Trachea Midline Respiratory: Symmetrical Chest Expansion and Respiratory Effort, Clear to Auscultation Cardiovascular: RRR - Normal S1 and S2 Abdominal: NL Sounds; No Tenderness; No Distention Neurological: Alert and Oriented x 3, NL Muscle Strength and Tone Lines/Tubes/Other Access: Clean, Dry and Intact Peripheral IV Nutrition: Taking PO's Result Diagrams: 03/21/17 05:31 03/21/17 05:31 Assess/Plan/Problems-Billing Assessment: Mrs. Miranda is an 86yo F with PMH of obesity, GERD, PMR, DJD, COPD, s/p recent periprosthetic femur fracture repair, transferred from [place] with E. coli pyelonephritis and bilateral hydronephrosis. - Patient Problems (1) E. coli pyelonephritis Comment: - Records from [place] reviewed and CT loaded to our system. - Ucx grew E. coli sensitive to Ceftriaxone - will continue. - CT reviewed with Radiology - bilateral mild to moderate hydronephrosis, but no obstructing stone. - D/w Urology (Dr. Garcia) - repeat renal US shows persistent left hydronephrosis , so plan is to take her to OR tomorrow. - She has no complaints of chest pain, dyspnea is at her baseline, EKG done in January showed no ischemic changes. RCRI is 0, predicting a 0.5% risk of cardiac complications. Patient is optimized for proposed procedure. (2) Severe sepsis Comment: - Present on admission to [place] with SKY. - Now resolved. (3) Jamila-prosthetic fracture around prosthetic knee Comment: - Toe touch WB on the left. - PT as tolerated. (4) DVT prophylaxis Comment: - SQ heparin on hold for OR tomorrow. (5) Full code status Status and Disposition: Inpatient.
[2017-03-21] MEDS ORDERED: Loperamide CAP* 2 MG PO PRN (15:22)
[2017-03-21] MEDS: Acetaminophen TAB* 325 MG PO PRN (21:28)
[2017-03-21] MEDS: CMCS Melatonin (NF) 3 MG TAB PO SCH (21:29)
[2017-03-21] MEDS: cefTRIAXone VIAL(*) 1,000 MG in NS 0.9% 50 ML* 50 ML IVPB SCH (23:35)
[2017-03-21] MEDS ORDERED: NS 0.9% 1000 ML* 1,000 ML IV SCH (23:59)
[2017-03-22] MEDS: Fluticasone NASAL SPRAY 50MCG* 16 gm SPRAY BTL NASAL SCH (07:46)
[2017-03-22] MEDS: celeCOXIB CAP* 200 MG PO SCH (07:47)
[2017-03-22] MEDS: Omeprazole CAP* 20 MG PO SCH (07:47)
[2017-03-22] MEDS: Gabapentin CAP(*) 300 MG PO SCH ×3 (07:47→21:27)
[2017-03-22] MEDS: Calcium Carbonate TAB* 1250 MG (CALCIUM 500 MG) PO SCH ×2 (08:40→21:28)
[2017-03-22] MEDS: Cholecalciferol TAB* 1000 UNITS PO SCH (08:40)
[2017-03-22] MEDS: Cyanocobalamin TAB* 500 MCG PO SCH (08:41)
[2017-03-22] MEDS: FENOFIBRATE 160 MG PO SCH (08:41)
[2017-03-22] MEDS ORDERED: fentaNYL* 50 MCG/ML 2 ML VIAL (100 MCG VIAL) ONE (11:46)
[2017-03-22] MEDS ORDERED: Midazolam* 1 MG/ML 5 ML VIAL (5 MG) ONE (11:46)
[2017-03-22] MEDS ORDERED: Iohexol 180 (CONTRAST) 10 ML SDV IV ONE (12:03)
[2017-03-22] MEDS ORDERED: KETAMINE HCL* 50 MG/ML 10 ML VIAL ONE (12:38)
[2017-03-22] MEDS ORDERED: Dexamethasone IV* 4 MG/ML 1 ML (4 MG) ONE (13:07)
[2017-03-22] MEDS ORDERED: Ketorolac INJ* 30 MG/ML 1 ML VIAL ONE (13:07)
[2017-03-22] MEDS ORDERED: Lidocaine 2% PF * 5 ML VIAL ONE (13:07)
[2017-03-22] MEDS ORDERED: Ondansetron INJ* 2 MG/ML VIAL ONE (13:07)
[2017-03-22] MEDS ORDERED: Propofol* 10 MG/ML 20 ML BTL IV PUSH ONE ×2 (13:07→13:10)
[2017-03-22] MEDS ORDERED: Glycopyrrolate IV* 0.2 MG/ML 1 ML VIAL ONE (13:25)
--- NOTE | 2017-03-22 14:06 | RAD ---
INDICATION: Left ureteroscopic the and stent placement. COMPARISON: Comparison is made with a prior outside CT of the abdomen and pelvis from March 18, 2017 and a prior ultrasound of the kidneys and bladder from March 21, 2017. TECHNIQUE: 15 seconds of intermittent fluoroscopic guidance were provided and 11 spot films of the abdomen were centered on the left side. FINDINGS: There is partial opacification of the left renal collecting system. There is dilatation of the renal pelvis and calyces. Subsequently there is placement of a double-J stent catheter on the left side which demonstrates normal course. IMPRESSION: INTRAOPERATIVE CONTROL FILMS. CPT II Codes: 6045F
--- NOTE | 2017-03-22 17:05 | PN ---
Subjective Date of Service: 03/22/17 Interval History: HOSPITALIST PROGRESS NOTE Patient seen and examined at bedside. She feels better now, denies pain. Family History: Unchanged from Admission Social History: Unchanged from Admission Past Medical History: Unchanged from Admission Objective Active Medications: Acetaminophen (Tylenol Tab*) 650 mg PO Q4H PRN PRN Reason: FEVER/PAIN Last Admin: 03/21/17 21:28 Dose: 650 mg Calcium Carbonate (Calcium Carbonate Tab*) 1,250 mg PO BID [facility] Last Admin: 03/22/17 08:40 Dose: Not Given Celecoxib (Celebrex Cap*) 200 mg PO DAILY [facility] Last Admin: 03/22/17 07:47 Dose: 200 mg Cholecalciferol (Vitamin D Tab*) 2,000 units PO DAILY [facility] Last Admin: 03/22/17 08:40 Dose: Not Given Cyanocobalamin (Vitamin B12 Tab*) 1,000 mcg PO DAILY [facility] Last Admin: 03/22/17 08:41 Dose: Not Given Fenofibrate (Tricor(Nf)) 160 mg PO QAM [facility] PRN Reason: Protocol Last Admin: 03/22/17 08:41 Dose: Not Given Fluticasone Propionate (Flonase Nasal [place] 50mcg*) 1 spray NASAL DAILY [facility] Last Admin: 03/22/17 07:46 Dose: Not Given Gabapentin (Neurontin Cap(*)) 600 mg PO TID [facility] Last Admin: 03/22/17 13:54 Dose: Not Given Ceftriaxone Sodium 1,000 mg/ (Sodium Chloride) 50 mls @ 200 mls/hr IVPB Q24H [facility] Last Admin: 03/21/17 23:35 Dose: 200 mls/hr Sodium Chloride (Ns 0.9% 1000 Ml*) 1,000 mls @ 100 mls/hr IV PER RATE [facility] Last Admin: 03/22/17 08:00 Dose: 100 mls/hr Loperamide HCl (Imodium Cap*) 2 mg PO .SEE DIRECTIONS PRN PRN Reason: DIARRHEA Melatonin (Melatonin (Nf)) 3 mg PO BEDTIME [facility] Last Admin: 03/21/17 21:29 Dose: 3 mg Omeprazole (Prilosec Cap*) 20 mg PO 0730 [facility] Last Admin: 03/22/17 07:47 Dose: 20 mg Ondansetron HCl (Zofran Tab*) 4 mg PO Q6H PRN PRN Reason: NAUSEA/VOMITING Oxycodone/Acetaminophen (Percocet 5/325 Tab*) 1 tab PO Q4H PRN PRN Reason: PAIN Vital Signs 03/22/17 03/22/17 03/22/17 14:32 14:56 15:54 Temperature 97.7 F 97.3 F Pulse Rate 66 67 83 Respiratory 15 16 20 Rate Blood Pressure 115/75 115/65 136/64 (mmHg) O2 Sat by Pulse 95 98 90 Oximetry Oxygen Devices in Use Now: None Appearance: Pleasant eldely lady lying in bed in NAD. Eyes: No Scleral Icterus Ears/Nose/Mouth/Throat: Mucous Membranes Moist Neck: Trachea Midline Respiratory: Symmetrical Chest Expansion and Respiratory Effort, Clear to Auscultation Cardiovascular: RRR - Normal S1 and S2 Abdominal: NL Sounds; No Tenderness; No Distention Neurological: Alert and Oriented x 3, NL Muscle Strength and Tone Lines/Tubes/Other Access: Clean, Dry and Intact Peripheral IV Nutrition: Taking PO's Result Diagrams: 03/21/17 05:31 03/21/17 05:31 Assess/Plan/Problems-Billing Assessment: Mrs. Miranda is an 86yo F with PMH of obesity, GERD, PMR, DJD, COPD, s/p recent periprosthetic femur fracture repair, transferred from [place] with E. coli pyelonephritis and bilateral hydronephrosis. - Patient Problems (1) E. coli pyelonephritis Comment: - Records from [place] reviewed and CT loaded to our system. - Ucx grew E. coli sensitive to Ceftriaxone - will continue. - CT reviewed with Radiology - bilateral mild to moderate hydronephrosis, but no obstructing stone. - S/p cystocopy with stent placement today.. (2) Severe sepsis Comment: - Present on admission to [place] with SKY. - Now resolved. (3) Jamila-prosthetic fracture around prosthetic knee Comment: - Toe touch WB on the left. - PT as tolerated. (4) DVT prophylaxis Comment: - SQ heparin on hold for OR tomorrow. (5) Full code status Status and Disposition: Inpatient. Anticipate d/c in AM.
[2017-03-22] MEDS: CMCS Melatonin (NF) 3 MG TAB PO SCH (21:27)
[2017-03-22] MEDS ORDERED: Al Hydrox/Mg Hydrox/Simet LIQ* 30 ML UDC PO PRN (22:24)
[2017-03-23] MEDS: cefTRIAXone VIAL(*) 1,000 MG in NS 0.9% 50 ML* 50 ML IVPB SCH (02:36)
[2017-03-23] MEDS: Omeprazole CAP* 20 MG PO SCH (07:39)
[2017-03-23] MEDS: celeCOXIB CAP* 200 MG PO SCH (07:39)
[2017-03-23] MEDS: Cyanocobalamin TAB* 500 MCG PO SCH (07:40)
[2017-03-23] MEDS: FENOFIBRATE 160 MG PO SCH (07:40)
[2017-03-23] MEDS: Calcium Carbonate TAB* 1250 MG (CALCIUM 500 MG) PO SCH (07:40)
[2017-03-23] MEDS: Cholecalciferol TAB* 1000 UNITS PO SCH (07:40)
[2017-03-23] MEDS: Gabapentin CAP(*) 300 MG PO SCH (07:40)
[2017-03-23] MEDS: Fluticasone NASAL SPRAY 50MCG* 16 gm SPRAY BTL NASAL SCH (07:41)
[2017-03-23 07:48] VITALS: BP 105/51
--- NOTE | 2017-03-23 14:41 | OP ---
DATE OF OPERATION: 03/22/17 - ROOM #414 DATE OF : 34 SURGEON: Rogelio Garcia MD ANESTHESIOLOGIST: Dr. Coleman. ANESTHESIA: General. PRE-OP DIAGNOSIS: Left hydronephrosis. POST-OP DIAGNOSES: 1. Left hydronephrosis. 2. Obstructing calculus, left ureteropelvic junction. OPERATIVE PROCEDURE: Cystoscopy, left retrograde pyelogram, left ureteroscopy, left pyeloscopy, removal of calculus from left kidney and left stent insertion. COMPLICATIONS: None. STENT USED: 7-Beninese stent, left ureter. POSTOPERATIVE CONDITION: Stable. INDICATIONS: Joi Miranda is an 86-year-old lady with a history of recurrent renal calculi. She was recently evaluated and noted to have left hydronephrosis. OPERATIVE FINDINGS: 1. Left hydronephrosis. 2. 10 to 11 mm soft calculus, left ureteropelvic junction. DESCRIPTION OF PROCEDURE: After induction of general anesthesia, the patient was placed in dorsal lithotomy position. Sequential compression devices were in place and functioning. Initial cystoscopy revealed a normal appearing bladder. A guidewire was introduced into the left ureter. Retrograde pyelogram revealed left hydronephrosis. A 6-Beninese semi-rigid ureteroscope was introduced and advanced under direct vision. The entire distal, mid, and proximal ureter were visualized and were unremarkable. At ureteropelvic junction, a 10 to 12 mm soft, flat, disc shaped calculus was noted. This did not have the feel of her typical renal calculus and may represent possibly a sloughed papilla. This was engaged using a basket and removed and sent for analysis. The remainder of the pyeloscopy was unremarkable. A 7-Beninese stent was introduced and positioned under fluoroscopy with good proximal and distal positioning obtained. The patient tolerated the procedure satisfactorily and was transferred back to recovery area in stable condition. CC: Johnny To DO * [id number]/ZENOBIA #: [id number] [facility]'S HOSPITALJuliet
--- NOTE | 2017-03-24 02:55 | DS ---
CC: Dr. Johnny To; Dr. Garcia DISCHARGE SUMMARY: DATE OF ADMISSION: 03/18/17 DATE OF DISCHARGE: 03/23/17 PRIMARY CARE PROVIDER: Dr. Johnny To. UROLOGIST: Dr. Garcia. DISCHARGE DIAGNOSES: 1. E. coli pyelonephritis, not Vergara catheter related, present on admission. 2. Severe sepsis. 3. Acute kidney injury. 4. Left hydronephrosis. 5. Status post cystoscopy with removal of stone and stent placement. SECONDARY DIAGNOSES: 1. Obesity with a BMI of 35. 2. Gastroesophageal reflux disease. 3. Polymyalgia rheumatica. 4. Osteoarthritis. 5. Chronic obstructive pulmonary disease. 6. Status post recent periprosthetic femur fracture repair. MEDICATION LIST: 1. Cholecalciferol 2000 units p.o. daily. 2. Calcium 600 mg p.o. b.i.d. 3. Pantoprazole 40 mg p.o. daily. 4. Fluticasone nasal spray 50 mcg nasal daily. 5. Levocetirizine 5 mg p.o. daily. 6. Acetaminophen 500 mg p.o. q.8 hours p.r.n. pain. 7. Cyanocobalamin 1000 mcg p.o. daily. 8. Fenofibrate 160 mg p.o. daily. 9. Gabapentin 600 mg p.o. t.i.d. 10. Celecoxib 200 mg p.o. q.a.m. 11. Senna 2 tablets p.o. daily as needed for constipation. 12. MiraLAX 17 g p.o. daily as needed for constipation. 13. Colace 100 mg p.o. daily as needed for constipation. New Medication: Cefuroxime 500 mg p.o. b.i.d. for 4 more days. HOSPITAL COURSE: Mrs. Miranda is an 86-year-old lady with a past medical history as stated above th at was transferred from [facility] to our facility on 03/18/17 with diagnosis of sepsis from UTI. The patient was initially admitted to [facility] on 03/15/17 and she was being treated with Roce phin with some improvement, but she was still having a left flank pain. Blood cultures were negativ e. Urine culture grew E. coli that was sensitive to Rocephin. She had shown signs of improvement w ith resolution of her leukocytosis and SKY, but a CT was done due to her left flank pain and it show ed bilateral hydronephrosis, greater on the left. She was transferred to [facility] for u rological evaluation. The patient had serial abdomen/bladder ultrasounds that showed persistent left- sided hydronephrosis . She was seen in consultation by Urology (Dr. Garcia) and taken to the OR on 03/22/17 where she had cystoscopy with left retrograde pyelogram and removal of a calculus from the left kidney with left stent insertion. The calculus was described as a 10 to 11 mm soft calculus, located at the left ure teropelvic junction. The patient had improvement of her symptoms. She remained afebrile while in our facility and she wa s felt to be medically stable for discharge. Of note, the patient has complaints of dysphagia with solids for a couple of months. She has a hist ory of GERD and has been compliant with her PPI. She will need further evaluation as outpatient, po ssibly with an upper endoscopy. The patient sustained a periprosthetic right femur fracture, status post surgical repair in [facility] and she is now toe-touch weightbearing and she will follow up with Dr. Messer next week. The patient is medically stable for discharge at this time. PHYSICAL EXAMINATION: Vital Signs: Temp 97.7, heart rate is 70, respiratory rate is 18, oxygen sat uration 92% on room air, blood pressure 105/51. General: The patient is a pleasant elderly lady, s itting up in bed, in no acute distress. CVS: Normal S1, S2. Regular rate and rhythm. Chest: [place] th sounds present bilaterally with no added sounds. Abdomen: Soft, nontender, nondistended. Bowel sounds are present. Extremities: No edema. Neuro: She is alert and oriented x3. Able to move a ll 4 extremities. DIET: Heart-healthy diet. ACTIVITY: As tolerated. DISPOSITION: To home. STATUS WHILE IN THE HOSPITAL: Inpatient. Please keep in mind this is a summarized version of this patient's prolonged and complex hospital st ay. If you need more information, please feel free to call me at [phone] or obtain the full ia dical records. TIME SPENT: Approximately 50 minutes were spent to complete the discharge. [id number] #: [id number]
== END 2017-03-23 10:05 | disposition home health service (06) | DRG 668 ==
LOC: MED 20:07 → OBSVTOIN 20:07 → MED 03-22 16:31
PROVIDERS: ADMIT Internal Medicine; ATTEND Internal Medicine
PROC: 0T778DZ Dilation of Left Ureter with Intraluminal Device, Via Natural or Artificial Opening Endoscopic (ICD-10-PCS; 2017-03-22)
PROC: BT1FZZZ Fluoroscopy of Left Kidney, Ureter and Bladder (ICD-10-PCS; 2017-03-22)
PROC: 0TC48ZZ Extirpation of Matter from Left Kidney Pelvis, Via Natural or Artificial Opening Endoscopic (ICD-10-PCS; principal; 2017-03-22 11:15)
DX: N13.6 Pyonephrosis (principal); A41.9 Sepsis, unspecified organism; R65.20 Severe sepsis without septic shock; N17.9 Acute kidney failure, unspecified; J44.9 Chronic obstructive pulmonary disease, unspecified; E66.01 Morbid (severe) obesity due to excess calories; R13.10 Dysphagia, unspecified; B96.20 Unspecified Escherichia coli [E. coli] as the cause of diseases classified elsewhere; R19.7 Diarrhea, unspecified; M97.12XD Periprosthetic fracture around internal prosthetic left knee joint, subsequent encounter; K21.9 Gastro-esophageal reflux disease without esophagitis; E78.1 Pure hyperglyceridemia; Z96.653 Presence of artificial knee joint, bilateral; M35.3 Polymyalgia rheumatica; M19.90 Unspecified osteoarthritis, unspecified site; N39.0 Urinary tract infection, site not specified; Z68.35 Body mass index [BMI] 35.0-35.9, adult; Z90.710 Acquired absence of both cervix and uterus; Z98.49 Cataract extraction status, unspecified eye; Z86.010 Personal history of colon polyps; Z88.0 Allergy status to penicillin; Z88.6 Allergy status to analgesic agent; Z88.8 Allergy status to other drugs, medicaments and biological substances; Z88.1 Allergy status to other antibiotic agents; Z91.041 Radiographic dye allergy status; Z80.3 Family history of malignant neoplasm of breast; Z80.1 Family history of malignant neoplasm of trachea, bronchus and lung; Z87.891 Personal history of nicotine dependence; Z87.440 Personal history of urinary (tract) infections
CPT/HCPCS: 36415; 74420; 76770; 80048; 80053; 81003; 81015; 82365; 85025; 85610; 85730; 86140; 87040; 87086; 88300; 94760; A9270-GY; C1876; J0696; J1100; J1580; J1644; J1885; J2250; J2405; J2704; J3010